=== PATIENT | male | born 1980 | race Hispanic/Latino ===

== ENCOUNTER 2017-08-10 13:36 | Emergency (ER) | payer OTHER ==
[2017-08-10] MEDS ORDERED: TETRACAINE HCL 0.5% 4 ML OPHTH SOLN ONE (13:46)
[2017-08-10] MEDS ORDERED: FLUORESCEIN SODIUM 0.6 MG STRIP ONE (13:46)
[2017-08-10] MEDS ORDERED: NA BORATE/BORIC AC/H2O/NACL 120 ML OPHTH IRRIG SOLN ONE (14:01)
[2017-08-10] MEDS ORDERED: ERYTHROMYCIN BASE 0.5% OPHTH OINT 1 GM TUBE ONE (14:05)
== END 2017-08-10 14:10 | disposition home or self-care (01) ==
LOC: EDH 13:36
DX: S01.111A Laceration without foreign body of right eyelid and periocular area, initial encounter (principal); Z72.0 Tobacco use; W22.8XXA Striking against or struck by other objects, initial encounter; Y93.89 Activity, other specified; Y92.89 Other specified places as the place of occurrence of the external cause; Y99.8 Other external cause status

== ENCOUNTER 2018-01-14 13:07 | Emergency (ER) | payer SELFPAY ==
[2018-01-14 14:10] LABS: RAPID GROUP A STREP NEGATIVE (NEGATIVE)
== END 2018-01-14 14:32 | disposition home or self-care (01) ==
LOC: EDH 13:07
DX: J02.8 Acute pharyngitis due to other specified organisms (principal); B97.89 Other viral agents as the cause of diseases classified elsewhere; Z72.0 Tobacco use
CPT/HCPCS: 87804; 87880

== ENCOUNTER 2018-06-13 13:32 | Emergency (ER) | payer OTHER ==
[2018-06-13] MEDS ORDERED: KETOROLAC TROMETHAMINE 30MG/ML ONE (14:20)
[2018-06-13] MEDS ORDERED: METOCLOPRAMIDE 10 MG/2 ML VIAL ONE (14:20)
[2018-06-13] MEDS ORDERED: DiphenhydrAMINE HCL 50 MG/ML VIAL ONE (14:20)
[2018-06-13] MEDS ORDERED: ONDANSETRON HCL 4 MG/2 ML VIAL ONE (14:20)
== END 2018-06-13 15:18 | disposition home or self-care (01) ==
LOC: EDH 13:32
DX: G43.909 Migraine, unspecified, not intractable, without status migrainosus (principal); Z90.49 Acquired absence of other specified parts of digestive tract; Z72.0 Tobacco use
CPT/HCPCS: 96374; 96375; 99283; J1200; J1885; J2405; J2765

== ENCOUNTER 2020-10-01 12:47 | Emergency (ER) | payer SELFPAY ==
[~2020-10-01] VITALS: Ht 167.6 cm; Wt 86.2 kg
[2020-10-01 13:20] LABS: ABG BASE EXCESS -1.1 mmol/L (-2.0-3.0); ABG HCO3 23.3 mmol/L (21.0-28.0); ABG OXYGEN SATURATION 94.7 % (95.0-99.0); ABG PCO2 38 mmHg (35-48)
[2020-10-01] MEDS ORDERED: CEFTRIAXONE 1G VIAL IVP ONE (13:30)
[2020-10-01] MEDS ORDERED: ACETAMINOPHEN WITH CODEINE 1 TAB TAB PO ONE (13:30)
[2020-10-01] MEDS ORDERED: AZITHROMYCIN 250 MG TABLET PO ONE (13:30)
[2020-10-01] MEDS ORDERED: SOLU-MEDROL 125MG VIAL IVP ONE (13:30)
[2020-10-01] MEDS ORDERED: ALBUTEROL INHALER 90MCG/INH IH PRN (13:30)
[2020-10-01 13:37] LABS: BASOPHILS % (AUTO) 0.6 % (0.0-5.0); EOSINOPHILS % (AUTO) 3.8 % (0.0-8.0); HEMATOCRIT 45.8 % (42-54); MEAN CORPUSCULAR HEMOGLOBIN 33.1 pg (27.0-33.0); MEAN CORPUSCULAR HGB CONC 34.1 g/dL (32.0-36.0); MEAN CORPUSCULAR VOLUME 97.2 fL (79-99); MONOCYTES % (AUTO) 5.9 % (3.0-13.0); NEUTROPHILS % (AUTO) 77.2 % (40.0-77.0); PLATELET COUNT (AUTO) 201 K/uL (130-400); RED BLOOD CELL COUNT(AUTO) 4.71 MIL/uL (4.50-6.20); RED CELL DISTRIBUTION WIDTH 12.2 % (11.0-15.5)
[2020-10-01] MEDS ORDERED: 0.9%NACL 100ML 100 ML ONE (13:40)
[2020-10-01 14:05] LABS: ALBUMIN 3.5 g/dL (3.5-5.0); BILIRUBIN,TOTAL 0.5 mg/dL (0.2-1.0); CREATININE 0.9 mg/dL (0.5-1.5); POTASSIUM 3.8 mmol/L (3.5-5.1); TOTAL PROTEIN, SERUM 7.9 g/dL (6.0-8.3)
[2020-10-01 14:09] LABS: B-TYPE NATRIURETIC PEPTIDE 87 pg/mL (0-100)
[2020-10-01] MEDS ORDERED: CODE10LI PO (14:17)
[2020-10-01] MEDS ORDERED: ALBUHFA IH (14:17)
[2020-10-01] MEDS ORDERED: AMOX-429 PO (14:17)
[2020-10-01] MEDS ORDERED: D-ME1POW16 PO (14:17)
[2020-10-01 14:59] VITALS: BP 140/88
== END 2020-10-01 15:01 | disposition home or self-care (01) ==
LOC: EDH 12:47
DX: J40 Bronchitis, not specified as acute or chronic (principal); J06.9 Acute upper respiratory infection, unspecified; B97.89 Other viral agents as the cause of diseases classified elsewhere; R19.7 Diarrhea, unspecified; Z20.822 Contact with and (suspected) exposure to COVID-19
CPT/HCPCS: 36415; 36600; 71045; 80053; 82803; 83605; 83880; 84484; 85025; 86140; 87040; 87635; 87804 ×2; 87880; 93005; 96361; 96374; 96375; 99285; C9803; J0696; J2930

== ENCOUNTER 2023-08-16 13:44 | Emergency (ER) | payer BC, OTHER ==
[~2023-08-16] VITALS: Ht 167.6 cm; Wt 83.9 kg
[~2023-08-16 13:44] MED LIST: ALBUHFA IH; AMOX-429 PO; CODE10LI2 PO; D-ME1POW16 PO
[2023-08-16 14:26] LABS: AMPHET/METH SCREEN,URINE NEGATIVE (NEGATIVE); APPEARANCE,URINE CLOUDY (CLEAR); BARBITURATE SCREEN, URINE NEGATIVE (NEGATIVE); BENZODIAZEPINES SCREEN,URINE NEGATIVE (NEGATIVE); BILIRUBIN,URINE NEGATIVE (NEGATIVE); CANNABINOID SCREEN,URINE NEGATIVE (NEGATIVE); COCAINE SCREEN,URINE POSITIVE (NEGATIVE); COLOR,URINE YELLOW (YELLOW); GLUCOSE, URINE (UA) NEGATIVE (NEGATIVE); KETONES,URINE NEGATIVE (NEGATIVE); LEUKOCYTE ESTERASE ,URINE NEGATIVE Leu/uL (NEGATIVE); NITRATE,URINE NEGATIVE (NEGATIVE); OCCULT BLOOD,URINE NEGATIVE (NEGATIVE); OPIATE SCREEN,URINE NEGATIVE (NEGATIVE); PH,URINE 5.5 (5.0-8.0); PHENCYCLIDINE SCREEN,URINE NEGATIVE (NEGATIVE); PROTEIN,URINE 20 mg/dL (NEGATIVE); UROBILINOGEN,URINE 3 mg/dL (0.2-1.0)
[2023-08-16 14:27] LABS: ADD UA MICROSCOPIC YES
[2023-08-16 14:28] LABS: BACTERIA,URINE RARE /HPF (None Seen); MUCUS,URINE RARE LPF (None Seen); SQUAMOUS EPITHELIAL CELL,UR RARE /HPF (0-2); UNCLASSIFIED CRYSTAL 4 /HPF (None Seen)
[2023-08-16 14:43] LABS: BASOPHILS # (AUTO) 0.06 K/uL (0.00-0.20); BASOPHILS % (AUTO) 0.6 % (0.0-5.0); EOSINOPHILS # (AUTO) 0.18 K/uL (0.00-0.70); EOSINOPHILS % (AUTO) 1.9 % (0.0-8.0); HEMATOCRIT 47.8 % (42-54); IMMATURE GRANULOCYTE ABSOLUTE 0.05 K/uL (0-1); LYMPHOCYTES # (AUTO) 1.8 K/uL (1.0-4.8); LYMPHOCYTES % (AUTO) 18.9 % (21.0-51.0); MEAN CORPUSCULAR HEMOGLOBIN 32.2 pg (27.0-33.0); MEAN CORPUSCULAR HGB CONC 33.9 g/dL (32.0-36.0); MONOCYTES # (AUTO) 0.6 K/uL (0.1-1.0); MONOCYTES % (AUTO) 6.3 % (3.0-13.0); NEUTROPHILS # (AUTO) 6.8 K/uL (1.8-7.7); NEUTROPHILS % (AUTO) 71.8 % (40.0-77.0); PLATELET COUNT (AUTO) 265 K/uL (130-400); RED BLOOD CELL COUNT(AUTO) 5.03 MIL/uL (4.50-6.20); RED CELL DISTRIBUTION WIDTH 14.5 % (11.0-15.5); WHITE BLOOD COUNT (AUTO) 9.5 K/uL (4.8-10.8)
[2023-08-16 15:50] LABS: ACETAMINOPHEN < 1 mcg/mL (10-29); ALCOHOL, BLOOD < 3 mg/dL (0-10); CREATINE KINASE, TOTAL 242 U/L (21-232); SALICYLATE 3.8 mg/dL (2.8-20.0)
[2023-08-16 20:10] VITALS: BP 124/68; PULSE 80; RESP 18; O2SAT 99
== END 2023-08-16 20:28 ==
LOC: EDH 13:44
DX: S61.512A Laceration without foreign body of left wrist, initial encounter (principal); F14.10 Cocaine abuse, uncomplicated; Z79.899 Other long term (current) drug therapy; Z98.890 Other specified postprocedural states; Z90.49 Acquired absence of other specified parts of digestive tract; X78.8XXA Intentional self-harm by other sharp object, initial encounter; Y93.89 Activity, other specified; Y92.89 Other specified places as the place of occurrence of the external cause; Y99.8 Other external cause status
CPT/HCPCS: 99285; 82550; 80305; 85025; 36415; 81001; G0481